=== PATIENT | male | born 1980 | race Caucasian/White ===

== ENCOUNTER 2022-02-23 10:51 | Day surgery (SDC) | payer OTHER ==
[2022-02-22 13:22] VITALS: BMI 24.3
[~2022-02-23 10:51] MED LIST: LACTATED RINGERS 1,000 ML IV SCH; LIDOCAINE 1% (10MG/ML) FOR IV START INTRADERMA PRN
[2022-02-23 11:41] VITALS: TEMP 98.4
[2022-02-23] MEDS ORDERED: PROPOFOL 10 MG/ML 20 ML VIAL IV ONE (12:56)
--- NOTE | 2022-02-23 13:08 | P.PCN ---
Date of Procedure: 02/23/22 Procedure(s) Performed: BRIEF HISTORY: Patient is a 41-year-old pleasant white male scheduled for an elective colonoscopy as a part of evaluation of chronic intermittent diarrhea 5- 6 years duration. PROCEDURE PERFORMED: Colonoscopy with random biopsy. PREOPERATIVE DIAGNOSIS: Chronic intermittent diarrhea. IV sedation per Anesthesia. PROCEDURE: After informed consent was obtained, the patient, was brought into the endoscopy unit. IV sedation was administered by Anesthesia under continuous monitoring. Digital rectal examination was normal. Initially the Olympus CF-160 flexible video colonoscope was then inserted in the rectum, gradually advanced into the cecum without any difficulty. Careful examination was performed as the scope was gradually being withdrawn. Ileocecal valve and the appendiceal orifice were visualized and appeared normal. Prep was fair.. Mucosa of the cecum, ascending colon, transverse colon, descending colon, sigmoid colon, and rectum appeared normal. Random biopsies to be done from ascending and descending colon to rule out metastatic/collagenous colitis. Retroflexion was performed in the rectum and no lesions were seen. The patient tolerated the procedure well. IMPRESSION: Normal-appearing colon from rectum to cecum with no evidence of colorectal neoplasia. RECOMMENDATIONS: Findings of this examination were discussed with the patient as well as his family. He was advised to follow with the biopsy results. Recommend repeat screening colonoscopy in 10 years..
[2022-02-23 13:33] VITALS: BP 103/57; PULSE 51; RESP 16
== END 2022-02-23 13:46 | disposition home or self-care (01) ==
LOC: ORWHC2ENDO 10:51 → MERGE 14:00
PROVIDERS: ATTEND Internal Medicine Gastroenterology
DX: K52.9 Noninfective gastroenteritis and colitis, unspecified (principal); Z79.1 Long term (current) use of non-steroidal anti-inflammatories (NSAID); Z79.899 Other long term (current) drug therapy; G43.909 Migraine, unspecified, not intractable, without status migrainosus; K58.9 Irritable bowel syndrome, unspecified; Z97.2 Presence of dental prosthetic device (complete) (partial)
CPT/HCPCS: 88305; 45380; J2704

== ENCOUNTER 2023-03-24 12:16 | Day surgery (SDC) | payer OTHER ==
[2023-03-22 11:37] VITALS: BMI 24.3
[2023-03-24 13:40] VITALS: TEMP 97.5
[2023-03-24] MEDS ORDERED: LACTATED RINGERS 1,000 ML IV ONE (13:42)
[2023-03-24] MEDS ORDERED: PROPOFOL 10 MG/ML 20 ML VIAL IV ONE (14:16)
[2023-03-24] MEDS ORDERED: LIDOCAINE 2% INJ 20 MG/ML (2 ML VIAL) ONE (14:16)
[2023-03-24] MEDS ORDERED: LACTATED RINGERS 1,000 ML IV SCH (14:32)
--- NOTE | 2023-03-24 14:33 | P.PCN ---
Date of Procedure: 03/24/23 Procedure(s) Performed: BRIEF HISTORY: Patient is a 42-year-old, pleasant, white male scheduled for an upper endoscopy as a part of evaluation of intermittent episodes of atypical chest pain epigastric pain, passive regurgitation and diarrhea for the last 20 years that happens once a month or so and last 1 or 2 days. PROCEDURE PERFORMED: Esophagogastroduodenoscopy with biopsy . PREOPERATIVE DIAGNOSIS: epigastric pain/chest pain/diarrhea IV sedation per anesthesia. PROCEDURE: After informed consent was obtained, the patient was brought into the endoscopy unit. IV sedation was administered by Anesthesia under continuous monitoring. Initially the Olympus GIF-140 video endoscope was inserted into the mouth. Esophagus intubated without any difficulty. It was gradually advanced into the stomach and duodenum and carefully examined. The bulb and the second part of the duodenum appeared normal. biopsies were done from the duodenum to rule out celiac disease The scope at this time was withdrawn to the stomach, adequately insufflated with air, and upon careful examination, mucosa of the ant rum, mild gastritis and biopsies were done from this area. Mucosa of the body, cardia and the fundus appeared normal. The scope was then withdrawn into the esophagus. small sliding-type well hernia noted. The GE junction was located at 41 cm from the incisors. The esophagus appeared normal. There were no erosions or ulcerations seenwere biopsies were done from the distal esophagus and the patient tolerated the procedure well. IMPRESSION: 1. Mild antral gastritis. 2. Small hiatal hernia. RECOMMENDATIONS: The findings of this examination were discussed with the patient as well as his family. He was advised to follow with the biopsy results. He will be seen in the office in 3-4 weeks.
[2023-03-24 14:52] VITALS: BP 123/81; PULSE 59; RESP 16
== END 2023-03-24 15:20 | disposition home or self-care (01) ==
LOC: ORWHC2ENDO 12:16
PROVIDERS: ATTEND Internal Medicine Gastroenterology
DX: K29.50 Unspecified chronic gastritis without bleeding (principal); K21.00 Gastro-esophageal reflux disease with esophagitis, without bleeding; K44.9 Diaphragmatic hernia without obstruction or gangrene; F17.200 Nicotine dependence, unspecified, uncomplicated; Z88.0 Allergy status to penicillin
CPT/HCPCS: 43239; J2704; J2001; 88305

== ENCOUNTER 2023-07-13 12:24 | Day surgery (SDC) | payer OTHER ==
[2023-07-11 11:57] VITALS: BMI 24.3
[~2023-07-13 12:24] MED LIST changes: +ATROPINE SULFATE 0.4 MG/ML 1 ML VIAL IM ONE; -LIDOCAINE 1% (10MG/ML) FOR IV START INTRADERMA PRN
[2023-07-13 13:01] VITALS: TEMP 97.3
[2023-07-13] MEDS ORDERED: LIDOCAINE 1% (10MG/ML) FOR IV START INTRADERMA ONE (13:07)
[2023-07-13] MEDS ORDERED: LIDOCAINE 1% (10MG/ML) FOR IV START INTRADERMA PRN (13:09)
[2023-07-13] MEDS ORDERED: LACTATED RINGERS 1,000 ML IV SCH (13:09)
[2023-07-13] MEDS ORDERED: ONDANSETRON 4 MG/2 ML VIAL IVP ONE (13:12)
[2023-07-13] MEDS ORDERED: ONDANSETRON 4 MG/2 ML VIAL ONE (13:12)
[2023-07-13] MEDS ORDERED: PROPOFOL 10 MG/ML 20 ML VIAL IV ONE (13:36)
--- NOTE | 2023-07-13 14:10 | PCN ---
PROCEDURE NOTE This is a Pulmonary/Critical Care Procedure Note. PROCEDURES PERFORMED: Bronchoscopy, airway examination, therapeutic lavage, and bronchoalveolar lavage of right middle lobe. PREOPERATIVE DIAGNOSES: 1. Chronic cough. 2. Congestion. 3. Shortness of breath. 4. Airway secretions. POSTOPERATIVE DIAGNOSES: 1. Chronic cough. 2. Congestion. 3. Shortness of breath. 4. Airway secretions. OPERATORS: Dr. Zhu and Dr. Gant. ANESTHESIA PROVIDED: General anesthesia. The patient's procedure took place in room #3, [facility]. DESCRIPTION OF PROCEDURE: After the patient was adequately sedated, the bronchoscope was inserted through the right nostril. It passed through the right nasopharynx into the oropharynx. The hypopharynx was topicalized. The hypopharyngeal structures were evaluated. Of note, there was a lesion noted in the area of the vallecula. Pictures were taken of the lesion. The rest of the hypopharynx was evaluated and found to be normal including anterior commissure, true cords, false cords, arytenoids, piriform sinuses - right and left, and vallecula. The glottic opening was topicalized, and the bronchoscope was inserted through the glottic opening into the trachea. The trachea appeared relatively normal. Tracheal marguerite was sharp. The right and left mainstem were topicalized. The right upper lobe and its 3 segments, right middle lobe and its 2 segments, right lower lobe and its 5 segments, left upper lobe proper and its 2 segments, lingula and its 2 segments, and left lower lobe and its 4 segments all had similar findings of mild bronchitis. There were thin secretions noted throughout. There was nothing that looked purulent. There was no dominant mass or tumor. Mucosa was not particularly friable. The bronchoscope was wedged into the right middle lobe. BAL took place. 30 mL of fluid was recovered. The patient tolerated the procedure well. The fluid will be sent for analysis including microbiology and cytology. The patient will be recovered. There was no immediate complication. The patient will need referral to Ear, Nose, and Throat Medicine because of the lesion noted in the area of the right side of the vallecula. MMODL / IJN: [id number] /
[2023-07-13 14:16] VITALS: BP 142/73; PULSE 95
[2023-07-13 14:17] VITALS: RESP 17
[2023-07-14 13:04] LABS: Appearance,BF Clear (Clear); RBC, Body Fluid 137 /UL (0-2000)
[2023-07-17 09:49] LABS: Nucleated Cells, Body Fluid 139 /UL
== END 2023-07-13 14:40 | disposition home or self-care (01) ==
LOC: ORWHC2ENDO 12:24
PROVIDERS: ATTEND Internal Medicine Critical Care Medicine
DX: J44.9 Chronic obstructive pulmonary disease, unspecified (principal); E55.9 Vitamin D deficiency, unspecified; K21.9 Gastro-esophageal reflux disease without esophagitis; Z88.0 Allergy status to penicillin
CPT/HCPCS: 89050; 87070; 87205; 87116; 87102; 87206; 31624; J0461; J2405; J2704; 88108; 88305

== ENCOUNTER 2024-01-18 12:20 | Day surgery (SDC) | payer OTHER ==
[2024-01-18] MEDS: LACTATED RINGERS 1,000 ML IV SCH (12:59)
[2024-01-18] MEDS: ATROPINE SULFATE 0.4 MG/ML 1 ML VIAL IM ONE (13:10)
[2024-01-18 13:14] VITALS: TEMP 97.8
[2024-01-18] MEDS ORDERED: PROPOFOL 10 MG/ML 20 ML VIAL IV ONE (13:25)
[2024-01-18] MEDS ORDERED: MIDAZOLAM 2 MG/2 ML VIAL ONE (13:25)
[2024-01-18] MEDS ORDERED: LIDOCAINE 2% (PF) 20 MG/ML 5 ML VIAL ONE (13:25)
[2024-01-18] MEDS ORDERED: fentaNYL (PF) 50 MCG/ML 2 ML AMP ONE (13:25)
[2024-01-18] MEDS ORDERED: KETAMINE HCL IN 0.9 % NACL 50 MG/5 ML SYRINGE ONE (13:25)
[2024-01-18] MEDS: LIDOCAINE 2% INJ 20 MG/ML INTRATRACH ONE (13:29)
[2024-01-18] MEDS ORDERED: LACTATED RINGERS 1,000 ML IV SCH (13:55)
--- NOTE | 2024-01-18 14:07 | PCN ---
PROCEDURE NOTE PROCEDURES PERFORMED: Bronchoscopy, airway examination, therapeutic lavage, BAL right middle lobe. PREOPERATIVE DIAGNOSES: COPD exacerbation, bronchitis, retained secretions. POSTOPERATIVE DIAGNOSES: COPD exacerbation, bronchitis, retained secretions. COAL TRIMMER MACHINE OPERATOR: Dr. Zhu. The patient's procedure took place in room #3 [facility]. There was informed consent and universal timeout. DESCRIPTION OF PROCEDURE: Anesthesia provided monitored anesthesia care. After the patient was adequately sedated and being fully monitored, the bronchoscope was inserted through the right nostril. It passed through the right nasopharynx into the oropharynx. The hypopharynx was identified and topicalized. 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 This tumor was seen on the previous bronchoscopy and is about the same size as it was before. Ear, Nose, and Throat doctors will be dealing with this. At the glottic opening, it was topicalized with lidocaine. The bronchoscope was then pushed through the glottic opening into the trachea. The trachea itself appeared normal. Tracheal marguerite was sharp. Right mainstem was topicalized. Left mainstem were topicalized. I did a thorough evaluation of both lungs, including the right upper lobe and its 3 segments, right middle lobe and its 2 segments, right lower lobe and its 5 segments, left upper lobe proper and its 2 segments, lingula and its 2 segments and left lower lobe and its 4 segments. The airways were erythematous and hyperemic. There was a fair amount of bronchitis. There were secretions noted throughout. They were somewhat foamy but somewhat purulent looking. There was no dominant mass or tumor. There was no bleeding. The bronchoscope was then wedged into the right middle lobe. We did a formal BAL. The patient tolerated the procedure well. A 30 mL of fluid was recovered. The fluid will be sent for analysis. There was no immediate complication. Additional secretions were suctioned and the bronchoscope was withdrawn. The patient will be recovered. MMODL / IJN: [id number] /
[2024-01-18 14:43] VITALS: BP 114/72; PULSE 71; RESP 18
[2024-01-18 22:15] LABS: Appearance,BF Hazy (Clear); RBC, Body Fluid 190 /UL (0-2000)
[2024-01-19 09:21] LABS: Nucleated Cells, Body Fluid 180 /UL
== END 2024-01-18 14:41 | disposition home or self-care (01) ==
LOC: ORWHC2ENDO 12:20
PROVIDERS: ATTEND Internal Medicine Critical Care Medicine
DX: J44.1 Chronic obstructive pulmonary disease with (acute) exacerbation (principal); K21.9 Gastro-esophageal reflux disease without esophagitis; F17.200 Nicotine dependence, unspecified, uncomplicated; E55.9 Vitamin D deficiency, unspecified; Z90.89 Acquired absence of other organs; Z79.899 Other long term (current) drug therapy; Z88.0 Allergy status to penicillin; Z79.51 Long term (current) use of inhaled steroids
CPT/HCPCS: 88108; 88305; 89050; 87070; 87205; 87116; 87102; 87206; 31624; J2001 ×2; J2250; J0461; J3010; J2704

== ENCOUNTER 2024-06-28 07:08 | Emergency (ER) | payer OTHER ==
[2024-06-28 07:14] VITALS: RESP 16
--- NOTE | 2024-06-28 07:50 | ED ---
General Adult HPI - General Chief complaint: Dental/Oral Stated complaint: Oral Pain Time Seen by Provider: 06/28/24 07:11 Source: patient, RN notes reviewed, old records reviewed Mode of arrival: ambulatory Limitations: no limitations - History of Present Illness Initial comments: 43-year-old male presenting with right upper molar pain. Patient has previous crown and has had issues with this over the past several years. He has seen a dentist but was lost to follow-up. No fevers. No difficulty swallowing. Patient is also struggling with some anger issues, insomnia and depression. 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 No suicidal or homicidal ideation but requesting referral for mental health - Related Data Home Medications Medication Instructions Recorded Confirmed Clobetasol Propionate/Emoll 1 applic TOPICAL DAILY 07/11/23 01/18/24 [Clobetasol Emulsion 0.05% Foam] Previous Rx's Medication Instructions Recorded Clindamycin [Cleocin] 450 mg PO TID 10 Days #90 cap 06/28/24 Ibuprofen [Motrin] 600 mg PO Q8HR PRN #24 tab 06/28/24 Allergies Allergy/AdvReac Type Severity Reaction Status Date / Time Penicillins Allergy Unknown Verified 03/24/23 13:32 Review of Systems ROS Statement: Those systems with pertinent positive or pertinent negative responses have been documented in the HPI. ROS Other: All systems not noted in ROS Statement are negative. Past Medical History Past Medical History: GERD/Reflux, Osteoarthritis (OA), Skin Disorder Additional Past Medical History / Comment(s): MIGRAINE HEADACHES , LOW BACK PAIN , IRRITABLE BOWEL , dermatitis , bx done uses cream occasionally, tinnitus and blurred vision daily History of Any Multi-Drug Resistant Organisms: None Reported Past Surgical History: Orthopedic Surgery, Tonsillectomy Additional Past Surgical History / Comment(s): LACERATION OF FACE- REPAIRED , LEFT FOOT SURGERY Past Anesthesia/Blood Transfusion Reactions: No Reported Reaction Additional Past Anesthesia/Blood Transfusion Reaction / Comment(s): no blood transfusion Past Psychological History: Anxiety, Depression, PTSD Smoking Status: Current every day smoker - Past Family History Mother Family Medical History: Cancer Additional Family Medical History / Comment(s): leukemia Father Family Medical History: Cancer Additional Family Medical History / Comment(s): throat cancer tonsillar General Exam Limitations: no limitations General appearance: alert, in no apparent distress Head exam: Present: atraumatic, normocephalic Eye exam: Present: normal appearance, PERRL ENT exam: Present: other (Tenderness to percussion right upper molar) Respiratory exam: Present: normal lung sounds bilaterally. Absent: respiratory distress, wheezes Cardiovascular Exam: Present: regular rate, normal rhythm GI/Abdominal exam: Present: soft. Absent: distended, tenderness, guarding Extremities exam: Present: normal inspection, normal capillary refill Neurological exam: Present: alert, oriented X3, CN II-XII intact. Absent: motor sensory deficit Psychiatric exam: Present: depressed, anxious. Absent: homicidal ideation, suicidal ideation Skin exam: Present: warm, dry, intact Course Vital Signs 06/28/24 07:12 Temperature 97.6 F Pulse Rate 64 Respiratory 16 Rate Blood Pressure 122/76 O2 Sat by Pulse 99 Oximetry - Reevaluation(s) Reevaluation #1: 06/28/24 07:50 Medically cleared for EPS Medical Decision Making - Medical Decision Making Was pt. sent in by a medical professional or institution (Dr. PA, MICROFILM CLERK, urgent care, hospital, or half-way...) When possible be specific @ -No Did you speak to anyone other than the patient for history (EMS, parent, family, police, friend...)? What history was obtained from this source @ -No Did you review nursing and triage notes (agree or disagree)? Why? @ -I reviewed and agree with nursing and triage notes Were old charts reviewed (outside hosp., previous admission, EMS record, old EKG, old radiological studies, urgent care reports/EKG's, half-way records)? Report findings @ -No old charts were reviewed Differential Diagnosis: Acute pulpitis, dental abscess, dental caries, Nik's angina EKG interpreted by me (3pts min.). @ -As above X-rays interpreted by me (1pt min.). @ -None done CT interpreted by me (1pt min.). @ -None done U/S interpreted by me (1pt. min.). @ -None done What testing was considered but not performed or refused? (CT, X-rays, U/S, labs)? Why? @ -None What meds were considered but not given or refused? Why? @ -None Did you discuss the management of the patient with other professionals (professionals i.e. , PA, MICROFILM CLERK, lab, RT, psych nurse, psychiatric social worker, cisco network engineer, teacher, correction officer head, home health care case manager)? Give summary @ -No Was smoking cessation discussed for >3mins.? @ -No Was critical care preformed (if so, how long)? @ -No Were there social determinants of health that impacted care today? How? (Homelessness, low income, unemployed, alcoholism, drug addiction, transportation, low edu. Level, literacy, decrease access to med. care, assisted, rehab)? @ -No Was there de-escalation of care discussed even if they declined (Discuss DNR or withdrawal of care, Hospice)? DNR status @ -No What co-morbidities impacted this encounter? (DM, HTN, Smoking, COPD, CAD, Cancer, CVA, ARF, Chemo, Hep., AIDS, mental health diagnosis, sleep apnea, morbid obesity)? @ -None Was patient admitted / discharged? Hospital course, mention meds given and route, prescriptions, significant lab abnormalities, going to OR and other per tinent info. @43-year-old male with likely acute pulpitis, under a previous crown. No systemic symptoms. No facial swelling. No difficulty swallowing. Patient started on clindamycin secondary to penicillin allergy. Given pain control. He is instructed to follow-up with his dentist. Regarding the patient's mental health issues. He is offered EPS evaluation but states he cannot wait to see them. He states this has been a long ongoing issue. He is not suicidal or homicidal. He states he would like outpatient referral and is provided resources in the community. Undiagnosed new problem with uncertain prognosis? @ -No Drug Therapy requiring intensive monitoring for toxicity (Heparin, Nitro, Insulin, Cardizem)? @ -No Were any procedures done? @ -No Diagnosis/symptom? @ -Toothache Acute, or Chronic, or Acute on Chronic? @ -Acute on chronic Uncomplicated (without systemic symptoms) or Complicated (systemic symptoms)? @ -Default Side effects of treatment? @ -No Exacerbation, Progression, or Severe Exacerbation? @ -No Poses a threat to life or bodily function? How? (Chest pain, [place], DC, pneumonia, PE, COPD, DKA, ARF, appy, cholecystitis, CVA, Diverticulitis, Homicidal, Lisa cidal, threat to staff... and all critical care pts) @ -No Disposition Clinical Impression: Toothache Disposition: HOME SELF-CARE Condition: Fair Instructions (If sedation given, give patient instructions): Toothache (ED) Additional Instructions: Please return to the emergency department if you have have any new or worsening symptoms. Prescriptions: Clindamycin [Cleocin] 450 mg PO TID 10 Days #90 cap Ibuprofen [Motrin] 600 mg PO Q8HR PRN #24 tab PRN Reason: Pain Is patient prescribed a controlled substance at d/c from ED?: No Referrals: Sean Wan DO [Primary Care Provider] - 1-2 days Time of Disposition: 08:35
[2024-06-28] MEDS: KETOROLAC 15 MG/ML 1 ML VIAL IM STA (07:54)
[2024-06-28] MEDS: CLINDAMYCIN 150 MG CAP PO STA (07:56)
[2024-06-28 09:15] VITALS: BP 125/82; PULSE 67; TEMP 97.8
== END 2024-06-28 09:14 | disposition home or self-care (01) ==
LOC: EC 07:08
CPT/HCPCS: 96372; 99282